=== PATIENT | female | born 1990 | race Caucasian/White ===

== ENCOUNTER → 2023-10-10 | Outpatient (CLI) | payer SELFPAY ==
[2023-10-10 13:49] VITALS: BP 176/91; PULSE 88; RESP 17; TEMP 98.1
--- NOTE | 2023-10-10 13:52 | P.GSHP ---
History of Present Illness H&P Date: 10/10/23 Chief Complaint: Abnormal right breast ultrasound Cheli is a 33-year-old white female seen in consultation for Dottie morris regarding a radiographic abnormality in the right breast. She underwent a bilateral mammogram on 1030 [id number]. Nothing of concern was noted in the left breast in the right breast a low-density 0.9 cm mass was noted at the 6 o'clock position. The patient was recommended to undergo an ultrasound[place] [id number] of the right breast. This revealed a 0.9 cm mass in the posterior right breast at 6:00 not well seen on sonography. An indeterminate solid mass corresponding to what the patient's complaint of a palpable abnormality in the right breast was noted in the periareolar region. An ultrasound-guided core biopsy was recommended of this area for further evaluation. A six-month follow-up of the right breast mammographic abnormality was recommended if the biopsy on ultrasound was benign. These appeared to be 2 separate regions. The patient felt an area of concern in her right breast about 6 months ago. She then had work up preformed which included the mammogram and ultrasound. The spot has not changed in size as per the patient. Does not complain of any nipple discharge or skin changes of concern at this time. She has not had any recent trauma or infection in the breast. She's never had any surgery on her breast. Spot in her breast is more sensitive during her menstrual cycle. Caffeine: 3 drinks/day nicotine: stopped smoking in Jun, used to smoke 2-3 PP/week chocolate: occasional BCP: 15 years ago for about 7 years Family History: father: tumor removed from brain stem aunt paternal: ? breast cancer Paternal grandmother: Lung cancer Hormonal History menarche: 7 , breast fed: yes age at first : 22 periods regular Surgical history: Negative Medical history: none Social History: Nicotine: As above Alcohol: weekends drugs: none - Constitutional Constitutional: Denies chills, Denies fever - EENT Eyes: denies blurred vision, denies pain Ears: deny: decreased hearing, tinnitus Ears, nose, mouth and throat: Denies headache, Denies sore throat - Breasts Breasts: bilateral: as per HPI - Cardiovascular Cardiovascular: Denies chest pain, Denies shortness of breath - Respiratory Respiratory: Denies cough, Denies 7 - Gastrointestinal Gastrointestinal: Denies abdominal pain, Denies diarrhea, Denies nausea, Denies vomiting - Genitourinary (Female) Genitourinary: Denies dysuria, Denies hematuria - Menstruation Menstruation: Reports period normal - Musculoskeletal Musculoskeletal: Denies myalgias - Integumentary Integumentary: Denies pruritus, Denies rash - Neurological Neurological: Denies numbness, Denies weakness - Psychiatric Psychiatric: Denies anxiety, Denies depression - Endocrine Endocrine: Reports weight change, Denies fatigue - Hematologic/Lymphatic Comment: none - Allergic/Immunologic Comment: none Medications and Allergies Home Medications Medication Instructions Recorded Confirmed Type No Known Home Medications 10/10/23 10/10/23 History Allergies Allergy/AdvReac Type Severity Reaction Status Date / Time No Known Allergies Allergy Unverified 10/10/23 13:26 Surgical - Exam - General no distress - Eyes normal ocular movement - Neck trachea midline - Respiratory normal respiratory effort, clear to auscultation - Cardiovascular Rhythm: regular Heart Sounds: normal: S1, S2 - Abdomen Abdomen: soft, non tender, no guarding, no rigid, no rebound - Integumentary normal turgor - Neurologic no disoriented, no combative - Musculoskeletal normal gait, normal posture - Psychiatric oriented to time, oriented to person, oriented to place, speech is normal, memory intact Breast Exam: BRA: 38D Inspection: Bilateral grade 2/3 ptosis Palpation: Right breast: Multi positional exam in the periareolar region at approximately 11:30 there is approximately a 1.5 cm area of nodularity which may correspond to a sebaceous cyst; no palpable lesions are noted at the 9:00 area where the mammographic abnormality was identified Right axilla: No adenopathy of concern Left breast: Multi-positional exam no dominant masses or nodules of concern Left axilla: No adenopathy of concern Results Mammogram and ultrasound reviewed with Dr. Amezcua Assessment and Plan Assessment: Impression: Fibrocystic breast changes 2 radiographic at the maladies of concern in the right breast, the ultrasound abnormality corresponds to palpable abnormality and may represent a sebaceous cyst The 9:00 mammographic abnormality is not seen on ultrasound and is recommended to follow up in 6 months Plan: Last modification decreased caffeine intake We will attempt to get bilateral breast MRI If we are unable to get breast MRI would recommend surgical resection of the lesion in the right breast as I think this may be a sebaceous cyst and a repeat right breast mammogram in 6 months to follow the 9:00 mammographic abnormality CC: Dottie Blake
== END ==
LOC: WWCWWP 12:52
PROVIDERS: ATTEND Surgery
DX: N60.11 Diffuse cystic mastopathy of right breast (principal); N63.15 Unspecified lump in the right breast, overlapping quadrants; N63.25 Unspecified lump in the left breast, overlapping quadrants; Z80.3 Family history of malignant neoplasm of breast; Z87.891 Personal history of nicotine dependence

== ENCOUNTER → 2023-11-06 | Outpatient (CLI) | payer OTHER ==
--- NOTE | 2023-11-08 14:39 | BMR ---
EXAM DATE: 11/07/2023 EXAM DESCRIPTION: MRI-Breast Bilat (W/WO Contrast) INDICATION: Abnormal right breast mammogram COMPARISON: Right breast ultrasound 08/15/2023, bilateral breast mammogram 08/06/2023 TECHNIQUE: Multiplanar multisequence breast MRI was performed prior to and after administration of 8.5 mL of Gadavist intravenously. Post processing was performed utilizing a [employer] workstation. The exam was performed at [facility] and provided to review by radiologist and [facility]. FINDINGS: There is moderate, symmetric background parenchymal enhancement in breasts that are composed of heterogeneous fibroglandular tissue. RIGHT BREAST: Review of the dynamic contrast enhanced series demonstrates circumscribed ovoid 1.0 x 0.8 cm T2 hyperintense enhancing mass in the right breast at 6 o'clock position posterior depth which corresponds to subcentimeter mass on right breast mammogram (series 503, image 174 and series 601, image 155). At 9 o'clock position retroareolar region, there is a ovoid circumscribed 1.0 x 0.6 cm T1 and T2 hyperintense nonenhancing mass which corresponds to focal asymmetry on right breast mammogram and area of clinical palpable concern at 9 o'clock position retroareolar region.. The T2 weighted series demonstrated a few subcentimeter T2 hyperintense nonenhancing masses, for example in the upper outer quadrant (series 401, image 71) consistent with benign cysts. LEFT BREAST: Review of the dynamic contrast enhanced series shows a 1.7 x 1.3 cm slightly lobulated minimally T2 hyperintense enhancing mass in the left breast at 2-3 o'clock position posterior depth (series 503, image 346 and series 601, image 43). At 9 o'clock position retroareolar region in the left breast, there is a ovoid circumscribed 0.6 x 0.5 cm T1 and T2 hyperintense nonenhancing mass (series 503, image 358 and series 601, image 58). This is similar in appearance to palpable abnormality in the right breast. IMPRESSION: RIGHT BREAST: BI-RADS Category 4-suspicious. 1. A 1.0 x 0.8 cm enhancing mass in the right breast at 6 o'clock position posterior depth. Recommend targeted ultrasound of the right breast and ultrasound-guided biopsy is indicated. If no definitive sonographic correlate, recommend MRI guided biopsy for definitive diagnosis. 2. A 1.0 x 0.6 cm T1 and T2 hyperintense nonenhancing elongated mass in the right breast at 9 o'clock position retroareolar region corresponding to focal asymmetry on right breast mammogram and area of clinical palpable concern. Given the appearance and lack of enhancement, this likely represents focally dilated duct with internal debris. Recommend short-term follow-up with targeted right breast ultrasound. LEFT BREAST: BI-RADS Category 4-suspicious. 1. A 1.7 x 1.3 cm enhancing mass in the left breast at 2-3 o'clock position posterior depth. Recommend targeted ultrasound of the left breast and ultrasound-guided biopsy is indicated. If no definitive sonographic correlate, recommend MRI guided biopsy for definitive diagnosis. OVERALL ASSESSMENT- BI-RADS 4 MTDD
== END | disposition home or self-care (01) ==
LOC: RADMRIMAIN 14:05
PROVIDERS: ATTEND Surgery
DX: N63.15 Unspecified lump in the right breast, overlapping quadrants (principal); N63.21 Unspecified lump in the left breast, upper outer quadrant; R92.8 Other abnormal and inconclusive findings on diagnostic imaging of breast
CPT/HCPCS: 77049; A9585

== ENCOUNTER → 2023-12-05 | Outpatient (CLI) | payer OTHER ==
--- NOTE | 2023-12-05 09:53 | P.PN ---
Subjective Progress Note Date: 12/05/23 History of Present Illness H&P Date: 12-05-23 Chief Complaint: Abnormal right breast ultrasound Cheli is a 33-year-old white female seen in consultation for Dottei Blake regarding a radiographic abnormality in the right breast. She underwent a bilateral mammogram on [id number]. Nothing of concern was noted in the left breast in the right breast a low-density 0.9 cm mass was noted at the 6 o'clock position. The patient was recommended to undergo an ultrasound. [place] [id number] of the right breast. This revealed a 0.9 cm mass in the posterior right breast at 6:00 not well seen on sonography. An indeterminate solid mass corresponding to what the patient's complaint of a palpable abnormality in the right breast was noted in the periareolar region. An ultrasound-guided core biopsy was recommended of this area for further eval uation. A six-month follow-up of the right breast mammographic abnormality was recommended if the biopsy on ultrasound was benign. These appeared to be 2 separate regions. The patient felt an area of concern in her right breast about 6 months ago. She then had work up preformed which included the mammogram and ultrasound. The spot has not changed in size as per the patient. Does not complain of any nipple discharge or skin changes of concern at this time. She has not had any recent trauma or infection in the breast. She's never had any surgery on her breast. Spot in her breast is more sensitive during her menstrual cycle. She underwent bilateral breast MRI on 11-08-23 this revealed: RIGHT BREAST: 1. 1 by .08 CM lesion in the right breast at 6:00 biopsy on 11-26-23 fibroadenoma 2. 1 by .o6 cm lesion in the 9:00 right breast open resection recommended LEFT BREAST: 1.7 by 1.3 cm enhancing lesion at 2-3 O clock biopsy 11-26-23 fibroadenoama She tolerated the biopsies without difficulty. Caffeine: 3 drinks/day nicotine: stopped smoking in Jun, used to smoke 2-3 PP/week chocolate: occasional BCP: 15 years ago for about 7 years Family History: father: tumor removed from brain stem aunt paternal: ? breast cancer Paternal grandmother: Lung cancer Hormonal History menarche: 7 , breast fed: yes age at first : 22 periods regular Surgical history: Negative Medical history: none Social History: Nicotine: As above Alcohol: weekends drugs: none - Constitutional Constitutional: Denies chills, Denies fever - EENT Eyes: denies blurred vision, denies pain Ears: deny: decreased hearing, tinnitus Ears, nose, mouth and throat: Denies headache, Denies sore throat - Breasts Breasts: bilateral: as per HPI - Cardiovascular Cardiovascular: Denies chest pain, Denies shortness of breath - Respiratory Respiratory: Denies cough - Gastrointestinal Gastrointestinal: Denies abdominal pain, Denies diarrhea, Denies nausea, Denies vomiting - Genitourinary (Female) Genitourinary: Denies dysuria, Denies hematuria - Menstruation Menstruation: Reports period normal - Musculoskeletal Musculoskeletal: Denies myalgias - Integumentary Integumentary: Denies pruritus, Denies rash - Neurological Neurological: Denies numbness, Denies weakness - Psychiatric Psychiatric: Denies anxiety, Denies depression - Endocrine Endocrine: Reports weight change, Denies fatigue - Hematologic/Lymphatic Comment: none - Allergic/Immunologic Comment: none Medications and Allergies Home Medications Medication Instructions Recorded Confirmed Type No Known Home Medications 10/10/23 10/10/23 History Allergies Allergy/AdvReac Type Severity Reaction Status Date / Time No Known Allergies Allergy Unverified 10/10/23 13:26 Objective - Constitutional General appearance: Present: cooperative - EENT Eyes: Present: EOMI ENT: Present: hearing grossly normal - Neck Neck: Present: normal ROM - Respiratory Respiratory: bilateral: CTA - Cardiovascular Heart sounds: normal: S1, S2 - Gastrointestinal General gastrointestinal: Present: soft - Integumentary Integumentary: Present: normal turgor - Musculoskeletal Musculoskeletal: Present: gait normal - Psychiatric Psychiatric: Present: A&O x's 3, appropriate affect, intact judgment & insight - Additional findings Additional findings: Breast Exam: BRA: 38D Inspection: Bilateral grade 2/3 ptosis Palpation: Right breast: Multi positional exam in the periareolar region at approximately 11:30 there is approximately a 1.5 cm area of nodularity which may correspond to a sebaceous cyst; no palpable lesions are noted at the 9:00 area where the mammographic abnormality was identified Right axilla: No adenopathy of concern Left breast: Multi-positional exam no dominant masses or nodules of concern Left axilla: No adenopathy of concern Assessment and Plan Assessment: Impression: Fibrocystic breast changes Ultrasound core biopsy 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 Risk include but are not limited to bleeding, infection, reaction to the anesthetic. Secondary to the location the patient may have some inversion of the nipple or decreased sensation at the nipple areolar complex. She understands and wishes to proceed. CC: Dottie Blake
--- NOTE | 2023-12-05 09:58 | P.PN ---
Progress Note - Text Progress Note Date: 12/05/23 To Whom It May Concern: Cheli Santiago is undergoing a surgical procedure on December 10, 2023. She should be off of work until December 17. After that date she can return without restriction if she is not taking narcotic pain medication. She will be seen postoperatively on December 17, 2023 and release to go back to work will be given at that time. Sincerely: Dr. Elsy Mccloud
[2023-12-05 10:00] VITALS: BP 148/81; PULSE 78; RESP 17; TEMP 98.3
== END ==
LOC: WWCWWP 09:32
PROVIDERS: ATTEND Surgery
DX: N60.11 Diffuse cystic mastopathy of right breast (principal); N60.12 Diffuse cystic mastopathy of left breast; N60.21 Fibroadenosis of right breast; D24.1 Benign neoplasm of right breast; N63.15 Unspecified lump in the right breast, overlapping quadrants; N63.25 Unspecified lump in the left breast, overlapping quadrants; Q83.9 Congenital malformation of breast, unspecified; Z80.3 Family history of malignant neoplasm of breast; Z87.891 Personal history of nicotine dependence

== ENCOUNTER 2023-12-10 07:11 | Day surgery (SDC) | payer OTHER ==
[~2023-12-10 07:11] MED LIST: HYDROmorphone 0.5 MG/0.5 ML SYRINGE IVP PRN; MIDAZOLAM 2 MG/2 ML VIAL IV PRN; Pre Op ABX Message 1 EACH MISC MISCELLANE ONE
[2023-12-10] MEDS: LACTATED RINGERS 1,000 ML IV SCH (07:44)
[2023-12-10] MEDS: LIDOCAINE 1% (10MG/ML) FOR IV START INTRADERMA PRN (07:44)
[2023-12-10] MEDS: ONDANSETRON 4 MG/2 ML VIAL IVP ONE (07:48)
[2023-12-10] MEDS: DEXAMETHASONE SOD PHOSPHATE 4 MG/ML 1 ML VIAL IV ONE (07:48)
[2023-12-10] MEDS: HEPARIN SODIUM,PORCINE 5,000 UNIT/ML 1 ML VIAL SQ PRN (07:48)
[2023-12-10] MEDS: SCOPOLAMINE 1 MG/72 HR PATCH TRANSDERM ONE (07:48)
[2023-12-10 07:57] VITALS: RESP 16
[2023-12-10] MEDS ORDERED: LIDOCAINE 1% INJ 10MG/ML (20 ML MDV) ONE (08:33)
[2023-12-10] MEDS ORDERED: fentaNYL (PF) 50 MCG/ML 2 ML AMP ONE (08:33)
[2023-12-10] MEDS ORDERED: PROPOFOL 10 MG/ML 20 ML VIAL IV ONE (08:33)
[2023-12-10] MEDS ORDERED: MIDAZOLAM 2 MG/2 ML VIAL ONE (08:33)
[2023-12-10] MEDS: SODIUM CHLORIDE 0.9% 50 ML with ceFAZolin 2,000 MG IV ONE (08:44)
[2023-12-10] MEDS: LIDOCAINE (PF) 10 MG/ML 2 ML VIAL SQ ONE ×2 (09:01→09:08)
--- NOTE | 2023-12-10 09:06 | P.OP ---
Date of Procedure: 12/10/23 Preoperative Diagnosis: Nodule right breast periareolar area Postoperative Diagnosis: Same Procedure(s) Performed: Resection subcutaneous nodule right breast periareolar area Anesthesia: ARANZAA Surgeon: Nicol Ragland Estimated Blood Loss (ml): 3 IV fluids (ml): 500 Pathology: other (Nodule right breast) Condition: stable Disposition: same day Indications for Procedure: Palpable nodule right breast question if this may be sebaceous cyst Operative Findings: Nodule right breast/cystic Description of Procedure: The patient was taken to the operating room and following induction of anesthesia the right breast was prepped and draped in a sterile fashion. A periareolar incision was made and carried down to the palpable nodule. The nodule was approximately 1 cm in size. It was in the subcutaneous tissue. Careful dissection was performed. In the process of dissection the nodule was punctured and serous fluid was extruded. The lesion was excised. After we are sure that hemostasis was attained the deep tissues were closed using 3-0 Vicryl suture. The skin was closed using 4-0 Monocryl. 1% lidocaine was used. The patient tolerated the procedure in stable condition. All instrument and sponge counts were correct at the end of the case.
[2023-12-10 09:48] VITALS: TEMP 97.2
[2023-12-10 10:56] VITALS: BP 135/82; PULSE 52
== END 2023-12-10 10:43 | disposition home or self-care (01) ==
LOC: OR 07:11
PROVIDERS: ATTEND Surgery
DX: D24.1 Benign neoplasm of right breast (principal); F10.90 Alcohol use, unspecified, uncomplicated; Z87.891 Personal history of nicotine dependence; Z79.899 Other long term (current) drug therapy
CPT/HCPCS: 81025; 19120; J2250; J2001 ×2; J1644; J1100; J2405; J0690; J3010; J2704; 88305

== ENCOUNTER → 2023-12-20 | Outpatient (CLI) | payer OTHER ==
[2023-12-20 10:31] VITALS: BP 131/85; PULSE 64; RESP 18; TEMP 98.2
--- NOTE | 2023-12-20 10:33 | P.PN ---
Progress Note - Text Progress Note Date: 12/20/23 Cheli is a 33 year old female status post excision of nodule right breast on 12-10-23. The pathology was benign. She has done well post op. 1. Targeted ultrasound following an MRI to evaluation right breast to evaluate a 1 x 0.8 cm enhancing mass at the 6 o'clock position and ultrasound core biopsy 2. By 0.6 cm nonenhancing elongated mass in the right breast at 9:00 most likely representing the palpable change however in that vicinity and ultrasound was a lesion which did not look exactly like a sebaceous cyst and ultrasound-guided core biopsy recommended of this area as well 3. Left breast 1.7 x 1.3 cm enhancing mass at the 2 to 3 o'clock position for which ultrasound core biopsy is recommended No ultrasound correlate for the MRI findings in the right breast at 6:00 in the left breast at 3:00 are identified then MRI guided core biopsy has been recommended ultrasound core biopsy of the on 11-26-2023 fibroadenoma 9:00 lesion left breast recommended open resection this was done Left breast 1.7 x 1.3 cm enhancing lesion at 2-3 o'clock core biopsy fibroadenoma Impression: patient doing well post op Plan: repeat bilateral mammogram and ultrasound in 6 months with appointment at that time If she has any concern we will see her sooner CC: Dottie Blake
== END ==
LOC: WWCWWP 09:13
PROVIDERS: ATTEND Surgery
DX: Z04.89 Encounter for examination and observation for other specified reasons (principal); D24.1 Benign neoplasm of right breast; Z98.890 Other specified postprocedural states